=== PATIENT | female | born 1965 | race Caucasian/White ===

== ENCOUNTER 2023-01-22 09:28 | Observation (INO) ==
--- NOTE | 2022-12-25 10:00 | PAT Medication Instructions ---
Medication Instructions Date of Service December 25, 2022 Home Medications diclofenac sodium 75 mg tablet,delayed release 75 mg PO BID multivitamin 1 cap PO QAM venlafaxine 150 mg tablet,extended release 24 hr 150 mg PO QAM ASK your surgeon for instructions diclofenac sodium 75 mg tablet,delayed release 75 mg PO BID DO NOT take the morning of surgery multivitamin 1 cap PO QAM Take morning of surgery With a small sip of water, OTHERWISE NOTHING TO EAT OR DRINK AFTER MIDNIGHT: venlafaxine 150 mg tablet,extended release 24 hr 150 mg PO QAM Other Notes If you have any questions please call us at [phone] or [phone] or [phone] or [phone]
--- NOTE | 2022-12-31 10:03 | Anesthesiology Consultation ---
Date of Service December 31, 2022 Assessment & Plan (1) Encounter for pre-operative examination: - COVID screening: Per assessment on 12/31: No known COVID-19 positive contacts or current COVID-19 related symptoms. Travel screen negative. At surgeon discretion if preop Covid testing being done. - Outpatient joint assessment: Pt currently scheduled for inpatient pathway. If surgeon requests review for outpatient joint pathway, patient is an acceptable candidate for outpatient joint program from anesthesia standpoint. - PCP office visit (12/18/22): "Dina was told to check with me regarding the CT of the shoulder that showed some fibrotic changes in her chest. She is a nonsmoker, has no respiratory issues.. These fibrotic lung changes are not clinically relevant and she is cleared for surgery." - Abnormal CXR: CXR performed 12/31/22 showed "Mild interstitial thickening within the mid to lower lung zones. This is new from the prior study and could be due to mild congestive change, a low-grade interstitial pneumonitis, or developing chronic interstitial lung disease. Pulmonary consultation recommended for further evaluation." LUE CT performed 12/11/22 showed airspace opacities and possible fibrotic changes within the left lung. Correlate with history of recent infection. Recommend further evaluation with dedicated diagnostic chest CT if this is not a known finding." 11/2022 CT scan reviewed by PCP and felt nothing further needed preoperatively from his perspective. CT scan, PCP note and preop CXR findings reviewed with Dr. Chacon- he does not feel further evaluation and/or testing needed prior to surgery from his perspective. Chart Review Chart Review: Acceptable Risk for Surgery (pending evaluation AM DOS) and Patient seen in Pre Admission Testing Teaching & Discussion Pre-Anesthesia Teaching/Discussion Notes: Instructed NPO after midnight before surgery,except medications with 15 cc of water. Medication instructions provided according to the PAT guidelines. History Surgery Operation Date: 01/22/23 14:20 Proposed Procedures p Left Reverse Total Shoulder Arthroplasty - Erasto Cevallos M.D. Height/Weight Height: 5 ft 4.5 in Weight: 91 kg Allergies Allergy/AdvReac Type Severity Reaction Status Date / Time No Known Allergies Allergy Verified 12/24/22 14:02 Medications Home Medications Medication Instructions Recorded Confirmed Last Taken diclofenac sodium 75 mg 75 mg PO BID 12/24/22 12/24/22 Unknown tablet,delayed release multivitamin 1 cap PO QAM 12/24/22 12/24/22 Unknown venlafaxine 150 mg tablet,extended 150 mg PO QAM 12/24/22 12/24/22 Unknown release 24 hr Past Medical History Medical History Anxiety Obesity Osteoarthritis Exercise / Class Metabolic Activity II 4-5 Yardwork/Stairs/Walk up hill (one FS (no CP, no SOB)) Past Family History Family History Mother Family history of diabetes mellitus Family history of leukemia Brother Family history of diabetes mellitus Father Family history of diabetes mellitus Family/Other Family history of diabetes mellitus Daughter Family history of diabetes mellitus Past Surgical History Surgical History History of colonoscopy History of foot surgery RIGHT X2 History of neck surgery WITH CAGE/FULL ROM PER PATIENT History of shoulder surgery LEFT X2 History of total left hip replacement Past Anesthesia History No Hx of Anesthesia Complications and No Family Hx of Anesthesia Complications History of PONV No Hx of PONV and Hx of Motion Sickness (occasional) Social History Smoking Status: Never smoker Do You Dip or Chew Tobacco: No Hx Alcohol Use: No Hx Substance Use: No substance use type: does not use Review of Systems Patient denies chest pain, shortness of breath, dyspnea on exertion, fever, chills, cough, wheezing, palpitations. Physical Exam Vital Signs VITALS BP 113/79 P 87 TEMP 98.3 SP02 96%RA RESP 16 PHYSICAL Full cervical extension range of motion. Full TMJ range of motion. TMD 3 finger breaths Mallampati Score 3 Dentition: intact, left left side implant Lungs: clear throughout to auscultation Cardiac: regular rate and rhythm, no murmurs noted Spine: normal Carotid arteries: negative bruit Extremities: no edema Lab Results Anesthesia Preop Results Results Anesthesia Widget: WBC 5.34 K/ul (4.8-10.8) 12/31/22 Hgb 13.8 g/dl (12.0-16.0) 12/31/22 Hct 41.4 % (37.0-47.0) 12/31/22 Plt 341 K/uL (130-400) 12/31/22 Na 138 mmol/L (136-145) 12/31/22 K 4.3 mmol/L (3.5-5.1) 12/31/22 Cl 104 mmol/L (98-107) 12/31/22 CO2 25 mmol/L (21-32) 12/31/22 BUN 22 mg/dl (6-23) 12/31/22 Creat 0.78 mg/dl (0.6-1.2) 12/31/22 Glucose Level 117 mg/dl (70-99(Fasting)) H 12/31/22 PT 11.0 Seconds (9.0-12.0) 12/31/22 PTT 28.5 Seconds (21.0-31.0) 12/31/22 INR 1.0 (0.9-1.1) 12/31/22 HA1c 5.7 % (4.5-5.6) H 12/31/22 Urine Color Yellow 12/31/22 Urine Appearance Clear (Clear) 12/31/22 Urine pH 5.0 (4.5-7.5) 12/31/22 Urine Specific Rifle 1.016 (1.000-1.030) 12/31/22 Urine Protein Negative (Negative) 12/31/22 Urine Glucose (UA) Negative (Negative) 12/31/22 Urine Ketones Negative (Negative) 12/31/22 Urine Blood Negative (Negative) 12/31/22 Urine Nitrite Negative (Negative) 12/31/22 Urine Bilirubin Negative (Negative) 12/31/22 Urine Urobilinogen Negative (Negative) 12/31/22 Urine Leukocyte Esterase Trace (Negative) H 12/31/22 Urine WBC (Auto) 1-5 /hpf (0-5) 12/31/22 Urine RBC (Auto) 0-4 /hpf (0-4) 12/31/22 Urine Hyaline Casts (Auto) 0 /lpf (0-5) 12/31/22 Urine Epithelial Cells (Auto) 10-20 /lpf (0-5) H 12/31/22 Urine Bacteria (Auto) Negative (Negative) 12/31/22 Blood Type B Positive 12/31/22 Antibody Screen NEGATIVE 12/31/22 Testing Electrocardiogram Date: 12/31/22 Findings: + NSR @ (79) Chest X-Ray Date: 12/31/22 IMPRESSION: Mild interstitial thickening within the mid to lower lung zones. This is new from the prior study and could be due to mild congestive change, a low-grade interstitial pneumonitis, or developing chronic interstitial lung disease. Pulmonary consultation recommended for further evaluation. Other Testing LUE CT (11/20/22) Moderate osteoarthritis of the postoperative left glenohumeral joint. Query prior acromioclavicular joint debridement/decompression. The rotator cuff tendons are better evaluated on the outside MRI. There is a moderate to high grade fatty infiltration and atrophy of the infraspinatus muscle suggestive of chronic tear. Airspace opacities and possible fibrotic changes within the left lung. Correlate with history of recent infection. Recommend further evaluation with dedicated diagnostic chest CT if this is not a known finding. COVID-19 Risk Screen Screening Information COVID-19 Screen Date: 12/31/22 Exposure 21 Days Family/Household +COVID Last 21 Days: No Exposure 10 Days Any COVID Exposure Last 10 Days: No Symptoms Last 10 Days Experienced COVID Sx Last 10 Days: No + COVID 0-90 Days COVID + in Last 0-90 Days: No
--- NOTE | 2023-01-21 16:47 | History & Physical Report ---
Date of Service January 21, 2023 Assessment & Plan (1) Nontraumatic complete tear of left rotator cuff: Plan: She has a recurrent, full-thickness, retracted rotator cuff tear involving the entirety of the infraspinatus tendon and a significant portion of the supraspinatus tendon with near complete fatty atrophy of the infraspinatus muscle belly. This is therefore an irrepairable rotator cuff tear. She already has some glenohumeral joint arthritis, proximal migration humeral head, and 2 previous rotator cuff repairs on the shoulder. I advised her that another attempt at rotator cuff repair is not a viable treatment option. We discussed conservative management with steroid injections to help with the pain versus definitive surgical intervention with reverse total shoulder arthroplasty to help both her pain and function. Advised her that steroid injection is perfectly reasonable option, but will likely not help with her significant weakness; this is very bothersome to her. She would therefore like to proceed with reverse total shoulder arthroplasty, and I think this is reasonable. Risks, benefits, and alternatives of surgery were explained in detail. The surgical procedure, as well as postoperative recovery and rehabilitation, was also explained in detail. Risks include bleeding; infection; damage to surrounding structures such as nerves, blood vessels, and tendons that run in the area; persistent pain or stiffness; hardware failure; dislocation; brachial plexus palsy; blood clots; or need for further surgery. The patient understands all of this and wishes to proceed with surgery. Risks will be reviewed on the day of surgery and informed consent obtained. History of Present Illness Chief Complaint: Left shoulder pain and weakness Primary Care Provider: Pablito Small MD Previous procedures: 02/26/21 - Left shoulder arthroscopy with revision rotator cuff repair (repair of a new, large infraspinatus rotator cuff tear; previous supraspinatus repair was intact) 11/27/20 - Left shoulder arthroscopy with rotator cuff repair, biceps tenodesis, subacromial decompression, distal clavicle excision Ms. Nettles returns for her left shoulder. Again, she is almost 2 years out from her revision rotator cuff repair. She was doing very well with that shoulder until about July 2022. Around that time she had right ankle Achilles tendon repair and had to use a wheelchair after that surgery. She denies any 1 specific incident, but had progressive worsening of pain and weakness in that l eft shoulder with using the wheelchair. She also had 2 falls at home around [place] which likely contributed. Currently, she has severe pain in the right shoulder that is waking her up at night. She has severe weakness as well, and is really unable to lift anything, and this examination of the left shoulder reveals only about 100 degrees of active abduction is significantly affecting activities of daily living. Allergies Allergy/AdvReac Type Severity Reaction Status Date / Time No Known Allergies Allergy Verified 12/24/22 14:02 Home Medications Medication Instructions Recorded Confirmed Type diclofenac sodium 75 mg 75 mg PO BID 12/24/22 12/24/22 History tablet,delayed release multivitamin 1 cap PO QAM 12/24/22 12/24/22 History venlafaxine 150 mg tablet,extended 150 mg PO QAM 12/24/22 12/24/22 History release 24 hr Past Med/Surg History Medical History Anxiety Obesity Osteoarthritis Surgical History History of colonoscopy History of foot surgery RIGHT X2 History of neck surgery WITH CAGE/FULL ROM PER PATIENT History of shoulder surgery LEFT X2 History of total left hip replacement Family History Mother Family history of diabetes mellitus Family history of leukemia Brother Family history of diabetes mellitus Father Family history of diabetes mellitus Family/Other Family history of diabetes mellitus Daughter Family history of diabetes mellitus Social History Smoking Status: Never smoker Hx Alcohol Use: No Hx Substance Use: No Preferred Language: Tuvaluan Communication Ability: Effective Nib Finisher Required: No Beliefs That Will Affect Care: Faith Faith Beliefs: RASTAFARI Current Living Situation: Spouse Feels Safe at Home: Yes Assistive Devices: Glasses Physical Exam Physical Exam: And active external rotation to neutral. She has significant weakness in supraspinatus stress testing, and profound weakness on infraspinatus. She has pain with range of motion. Results & Data Diagnostic Findings Previous x-rays of the left shoulder from November 27 were reviewed. Mild glenohumeral joint arthritis. No obvious proximal migration of the humeral head. New MRI of the left shoulder obtained today was independently reviewed by me. Several sequences are significantly limited by motion artifact. Numerous anchors are seen throughout the humeral head. It looks like the supraspinatus tendon repair is intact, but slightly thinned. It looks like there is significant recurrent tearing of the infraspinatus tendon with tendon retraction and nearly complete fatty atrophy of the infraspinatus muscle belly. There is proximal migration of the humeral head.
[~2023-01-22 09:28] MED LIST: ACETAMINOPHEN 500 MG TAB PO SCH; BUPIVACAINE 0.5 % 5 MG/1 ML PF 10ML VIAL ONE; CeleBREX 200 MG CAP PO SCH; FAMOTIDINE 20 MG TAB PO SCH; GABAPENTIN 600 MG DOSE PO SCH; LIDOCAINE 2% MPF LOCAL 5 ML VIAL ONE; LR 15ML/HR IV SCH; MIDAZOLAM HCL 1 MG/ML 2ML VIAL ONE; PROPOFOL IV EMULSION 10 MG/ML 20 ML VIAL IV ONE; ROCURONIUM BROMIDE 10 MG/ML 5 ML VIAL IV ONE; TRANEXAMIC ACID 1,000 MG **IV Pre-op IV SCH; ceFAZolin 2000MG 2,000 MG/15 ML SYR IV SCH; dexAMETHasone 4 MG TAB PO SCH; fentaNYL citrate PF 100 MCG/2 ML VIAL ONE
--- NOTE | 2023-01-22 09:58 | History & Physical Bridge Note ---
Date of Service January 22, 2023 History & Physical Bridge Note I have examined the patient, reviewed the History & Physical and in the interval since the performance of the History & Physical I have noted the following changes of clinical significance: no changes noted
[2023-01-22] MEDS ORDERED: PHENYLEPHRINE HCL 10 MG/ML VIAL ONE (11:29)
[2023-01-22] MEDS ORDERED: ONDANSETRON INJ 2 MG/ML 2 ML VIAL ONE (11:33)
[2023-01-22] MEDS ORDERED: ROCURONIUM BROMIDE 10 MG/ML 5 ML VIAL IV ONE (11:43)
[2023-01-22] MEDS ORDERED: ePHEDrine sulfate 50 MG/ML AMP ONE (11:53)
[2023-01-22] MEDS ORDERED: VASOPRESSIN 20 UNIT/ML VIAL ONE (12:20)
--- NOTE | 2023-01-22 12:31 | Operative Report ---
Post Operative Report Pre & Post Diagnosis Operation Date: 01/22/23 11:55 Pre-Op Diagnosis: Left shoulder irrepairable recurrent rotator cuff tear Post-Op Diagnosis: Left shoulder irrepairable recurrent rotator cuff tear I identified the patient and participated in the time-out.: Yes Procedure Operation Date: 01/22/23 11:55 Actual Procedures Left reverse total shoulder arthroplasty (73534) Open biceps tenodesis () Deep hardware removal () - Erasto Cevallos M.D. Surgeon Erasto Cevallos MD Inspector Assembly Gurvinder Talbot PA-C Estimated Blood Loss 75 Findings Consistent with Post-Op Diagnosis Specimens None Drains None Anesthesia Type General Regional Complications Intraoperative humeral calcar fracture requiring cerclage cable Disposition Disposition: Recovery Room Indications Ms. Nettles is a 57-year-old female who previously underwent a left shoulder rotator cuff repair in November 2020, followed by a revision rotator cuff repair in February 2021. She was doing well until around July 2022 when she developed progressively worsening pain and weakness in her shoulder without obvious new specific injury. History, clinical exam, and imaging were consistent with the above diagnosis. Risks, benefits, and alternatives of surgery were explained in detail. The patient understood all this and wished to proceed. Description of Procedure Components Implanted: Tornier Reverse Total Shoulder implants Perform glenoid baseplate: 25mm, 15 degree full wedge with 6.5mm central screw and 5.0mm peripheral screws Glenosphere: 36mm standard Ascend Flex humeral stem: 3B Standard length (74mm) Humeral tray: 1.5 mm offset, +0mm thickness Polyethylene insert: 36mm, +6mm thickness [place] 2mm beaded cerclage cable Patient was identified in the preoperative holding area. Operative extremity was marked. Regional blockade was given by the Anesthesia Staff. Patient was then brought back to the operating room, and general anesthesia was induced without complication. Appropriate weight-based dose of Ancef was infused intravenously for antibiotic prophylaxis. The patient was then placed in the beachchair position. Left arm was then prepped and draped in a standard sterile fashion using Chlorhexidine prep. A standard deltopectoral incision was made through the skin and subcutaneous tissue. The cephalic vein was identified and retracted medially. Small branches to the deltoid were coagulated as necessary. The clavipectoral fascia was then incised and the subdeltoid space was opened. The rotator cuff was found to be deficient, and I therefore decided to perform a reverse total shoulder arthroplasty as planned preoperatively. The biceps tendon was identified within the bicipital groove, and previous biceps tenodesis at the superior aspect of the bicipital groove was noted to be intact. However, since removal of the tenodesis screw would be required for placement of the humeral implant, I had to revise the tenodesis to a soft tissue tenodesis at a more inferior location. I therefore tenodesed the biceps tendon at the superior border of the pectoralis tendon with #2 FiberWire suture. The biceps tendon was then divided proximal to this new tenodesis site and resected up to the previous tenodesis screw. The remaining subscapularis tendon was elevated subpe riosteally off of the lesser tuberosity. The glenohumeral joint was then dislocated, and large osteophytes were debrided with a ronguer. The intramedullary canal of the humerus was then opened with a canal finder. The humeral head cut was then made in the appropriate inclination and version using the cutting guide. Numerous rotator cuff repair anchors were encountered within the humeral canal, and the previously placed anchors and nonabsorbable sutures were removed as they were encountered. The humeral canal was then sequentially broached. Even though the preoperative plan size the humeral canal at a size 5 stem, the canal felt fairly tight at a size 3 trial stem. Unfortunately, during final impaction of the size 3 trial stem, a small fracture developed at the medial humeral calcar. I therefore placed a cerclage cable around the proximal humeral metaphysis to reduce and prevent further propagation of this fracture. This was tensioned appropriately and cut. A protective cap was then placed on top of the humeral trial. I then turned my attention to the glenoid. The proximal stump of the biceps tendon was excised, along with the labrum circumferentially around the glenoid. The Blueprint drill guide was then positioned on the glenoid, and the guidepin was then inserted. The 15 degree angled reamer was then inserted over the guidepin and an reamed to an appropriate depth. The central screw hole was drilled, and appropriate length 6.5mm central screw was selected. The baseplate was then implanted into place according to our preoperative Blueprint plan by tightening down the central screw. A peripheral 5mm nonlocking screw was placed superiorly first for additional compression of the baseplate, and then additional locking 5 mm peripheral screws were placed to complete fixation of the baseplate. Glenosphere was then impacted and secured. A trial humeral tray and insert were placed on the trial humeral stem, and a trial reduction was carried out. Once I achieved acceptable joint stability and range of motion with the trial implants, the final humeral implants were assembled on the back table and then impacted into position. I then took the shoulder through full range of motion to ensure good stability and acceptable motion. Wound was then copiously irrigated with sterile saline. Deep fascia was closed with 0 V-lock suture. Subcutaneous tissue was closed with 2-0 V-lock, and skin was closed with 3-0 V-lock. Skin was then sealed with Dermabond. Sterile dressings were then applied with a waterproof silver-impregnated dressing, and the arm was placed into a sling. The patient was awakened from anesthesia and taken to the Post Anesthesia Care Unit in stable condition. There were no immediate complications from the procedure although then the intraoperative calcar fracture noted above. I was present and scrubbed for the entire procedure, with the exception of final skin closure and dressing application. Due to the complex nature of the procedure, the entire surgery was performed with the operational assistance of Gurvinder Talbot PA-C. The trade sales assistant, under direct supervision, was involved in the performance of all aspects of the surgical procedure including hemostasis, tissue incision and retraction, instrument management, patient positioning, and wound closure. I attest to the content of the Intraoperative Record and any orders documented therein. Any exceptions are noted below.
[2023-01-22] MEDS ORDERED: SUGAMMADEX SODIUM 200 MG/2 ML VIAL IV ONE (12:33)
[2023-01-22] MEDS ORDERED: fentaNYL citrate PF 100 MCG/2 ML VIAL IV PRN (12:37)
[2023-01-22] MEDS ORDERED: NALOXONE HCL 0.4 MG/1 ML VIAL/CARP IV PRN ×2 (12:37→13:41)
[2023-01-22] MEDS ORDERED: ePHEDrine sulfate 50 MG/ML AMP IV PRN (12:37)
[2023-01-22] MEDS ORDERED: FLUMAZENIL 0.1 MG/1 ML 10 ML VIAL IV PRN (12:37)
[2023-01-22] MEDS ORDERED: LABETALOL HCL IV 5 MG/ML 20ML IV PRN (12:37)
[2023-01-22] MEDS ORDERED: PROMETHAZINE HCL 12.5 MG in SODIUM CHLORIDE 0.9% 50 ML IV PRN (12:37)
[2023-01-22] MEDS ORDERED: HYDROmorphone INJ 1 MG/ML SYRINGE IV PRN (12:37)
[2023-01-22] MEDS ORDERED: ATROPINE SULFATE 0.1 MG/ML 10ML SYR IV PRN (12:37)
[2023-01-22] MEDS ORDERED: ONDANSETRON INJ 2 MG/ML 2 ML VIAL IV PRN ×2 (12:37→13:41)
--- NOTE | 2023-01-22 13:19 | Anesthesiology Progress Note ---
Date of Service January 22, 2023 Anesthesia Post Procedure Vital Signs Vital Signs: Temp Pulse Pulse Resp BP Pulse Ox O2 Del Method 01/22/23 13:10 87 14 94/72 L 99 Room Air 01/22/23 13:00 84 16 115/75 100 Oxymask 01/22/23 12:50 36.0 C L 95 H 16 119/77 95 Oxymask 01/22/23 10:02 36.4 C L 84 20 136/92 96 Room Air O2 Flow Rate 01/22/23 13:10 01/22/23 13:00 5 01/22/23 12:50 5 01/22/23 10:02 Pain Intensity Left Shoulder: Pain Intensity: 4 Transfer of Care Handoff Completed per policy Notes Mental Status: alert / awake / arousable Patient Amnestic to Procedure: Yes Nausea / Vomiting: adequately controlled Pain: adequately controlled Airway Patency, RR, SpO2: stable & adequate BP & HR: stable & adequate Hydration State: stable & adequate Anesthetic Complications: no major complications apparent
[2023-01-22] MEDS ORDERED: oxyCODONE HCL IR 5 MG TAB (IMMEDIATE RELEASE) PO PRN (13:41)
[2023-01-22] MEDS ORDERED: MAGNESIUM HYDROXIDE SUSP 30 ML UDC PO PRN (13:41)
[2023-01-22] MEDS ORDERED: bisacodyL 10 MG SUPP PR PRN (13:41)
[2023-01-22] MEDS ORDERED: METOCLOPRAMIDE HCL INJ 5 MG/ML 2 ML VIAL IV PRN (13:41)
--- NOTE | 2023-01-22 13:52 | XRay Report ---
XR shoulder LT min 2V routine CLINICAL HISTORY: Post shoulder surgery COMPARISON: None FINDINGS: Alignment of the reverse total left shoulder arthroplasty is anatomic. No definite peripro sthetic fracture is identified however, a cerclage wire of the proximal left humerus is in place. The re are no unexpected radiopaque foreign bodies. Distal left clavicular resection is noted. IMPRESSION: Postoperative findings consistent with a reverse total left shoulder arthroplasty with pl acement of a proximal left humeral cerclage wire. ACT 112: Negative or not required by law. Electronically signed by: Bernabe Myers M.D. 01/22/2023 1:51 PM
[2023-01-22] MEDS: SODIUM CHLORIDE 0.9% 1000ML 1,000 ML IV SCH ×2 (14:03→23:43)
[2023-01-22] MEDS: ceFAZolin 2000MG 2,000 MG/15 ML SYR IV SCH (18:04)
[2023-01-22] MEDS: ACETAMINOPHEN 500 MG TAB PO SCH ×2 (18:04→23:42)
[2023-01-22] MEDS: DOCUSATE SODIUM 100 MG CAP PO SCH (20:47)
[2023-01-22] MEDS: IBUPROFEN 600 MG TAB PO SCH (20:47)
[2023-01-23] MEDS: IBUPROFEN 600 MG TAB PO SCH ×2 (03:38→08:57)
[2023-01-23] MEDS: ceFAZolin 2000MG 2,000 MG/15 ML SYR IV SCH (03:38)
[2023-01-23] MEDS: ACETAMINOPHEN 500 MG TAB PO SCH ×2 (05:11→11:47)
[2023-01-23 06:47] LABS: Basophils # (auto) 0.02 K/uL (0-0.2); Basophils % (auto) 0.3 %; Eosinophils # (auto) 0.01 K/uL (0-0.50); Eosinophils % (auto) 0.1 %; Hematocrit (blood only) 32.7 % (37.0-47.0); Hemoglobin 11.2 g/dl (12.0-16.0); Immature Granulocytes # (auto) 0.03 K/uL (0.01-0.20); Immature Granulocytes % (auto) 0.4 %; Lymphocytes # (auto) 1.96 K/uL (1.2-3.4); Lymphocytes % (auto) 24.5 %; Mean Corpuscular Hemoglobin 29.6 pg (25.0-34.0); Mean Corpuscular Hgb Conc 34.3 g/dL (32.0-36.0); Mean Corpuscular Volume 86.5 fL (80.0-100.0); Mean Platelet Volume 10.3 fL (9.4-12.4); Monocytes # (auto) 0.73 K/uL (0.11-0.59); Monocytes % (auto) 9.1 %; Neutrophils # (auto) 5.25 K/uL (1.40-6.50); Neutrophils % (auto) 65.6 %; Platelet Count 277 K/uL (130-400); RDW Standard Deviation 41.2 fL (36.4-46.3); Red Blood Count 3.78 M/uL (4.20-5.40)
[2023-01-23 07:34] LABS: Calcium 8.4 mg/dl (8.6-10.3); Potassium 4.1 mmol/L (3.5-5.1)
[2023-01-23 07:40] LABS: BUN Creatinine Ratio 34.4 (10-20); Est GFR (African American) 117.5 ml/min; Est GFR (Non-African American) 101.3 ml/min
[2023-01-23] MEDS: DOCUSATE SODIUM 100 MG CAP PO SCH (08:57)
[2023-01-23] MEDS ORDERED: ASPIRIN 325 MG ECTAB PO SCH (09:00)
[2023-01-23] MEDS ORDERED: MULTIVITAMIN TAB PO SCH (09:00)
[2023-01-23] MEDS ORDERED: VENLAFAXINE HCL XR 150 MG CAPXR PO SCH (09:00)
--- NOTE | 2023-01-23 10:54 | Orthopedic Progress Note ---
Date of Service January 23, 2023 Assessment & Plan (1) Nontraumatic complete tear of left rotator cuff: Plan: Postoperative day #1 status post left reverse total shoulder arthroplasty doing well. -Plan for discharge home today. Admission and Anticipated Discharge Date Admission Date: January 22, 2023 Subjective Patient resting comfortably in her chair. She says she has some soreness in the shoulder overnight, but overall pain is well controlled. Physical Exam Physical Exam: Examination of the left shoulder reveals her dressing is clean, dry, intact. Motor function is intact in the median, ulnar, and radial nerve distributions. She still endorses some numbness on the radial aspect of her hand. Results & Data Vital Signs (Past 12 Hours) Vital Signs Temp Pulse Resp BP Pulse Ox O2 Del Method 01/23/23 07:00 36.9 C 66 18 102/68 97 Room Air 01/23/23 03:00 36.5 C 78 16 104/71 97 Room Air 01/22/23 23:00 36.6 C 77 17 102/69 93 Room Air
--- NOTE | 2023-01-23 10:55 | Discharge Summary ---
Date of Service January 23, 2023 Admission HPI Per Admitting Provider Previous procedures: 02/26/21 - Left shoulder arthroscopy with revision rotator cuff repair (repair of a new, large infraspinatus rotator cuff tear; previous supraspinatus repair was intact) 11/27/20 - Left shoulder arthroscopy with rotator cuff repair, biceps tenodesis, subacromial decompression, distal clavicle excision Ms. Nettles returns for her left shoulder. Again, she is almost 2 years out from her revision rotator cuff repair. She was doing very well with that shoulder until about July 2022. Around that time she had right ankle Achilles tendon repair and had to use a wheelchair after that surgery. She denies any 1 specific incident, but had progressive worsening of pain and weakness in that left shoulder with using the wheelchair. She also had 2 falls at home around [place] which likely contributed. Currently, she has severe pain in the right shoulder that is waking her up at night. She has severe weakness as well, and is really unable to lift anything, and this examination of the left shoulder reveals only about 100 degrees of active abduction is significantly affecting activities of daily living. Principal Diagnosis Left shoulder irrepairable recurrent massive rotator cuff tear Discharge Data Allergies Allergy/AdvReac Type Severity Reaction Status Date / Time No Known Allergies Allergy Verified 01/22/23 09:59 Procedures Performed Operation Date: 01/22/23 11:55 Actual Procedures p Left Reverse Total Shoulder Arthroplasty, Open Biceps tenodesis, (Left) - Erasto Cevallos M.D. s Deep Hardware Removal (Left) - Erasto Cevallos M.D. Ordered Studies 01/22/23 05:00 US - OR guided needle placemen Routine Hospital Course (1) Nontraumatic complete tear of left rotator cuff: Patient underwent a left reverse total shoulder arthroplasty, and was admitted under the orthopedic surgery service postoperatively. Patient tolerated the procedure well and was transferred up to the orthopedic surgery floor in stable condition. Perioperative antibiotic coverage was initiated for 24 hours. DVT prophylaxis consisting of aspirin 325 mg daily was started the morning after surgery. On postoperative day 1, pain was well controlled with oral medications only. Patient was ambulating without assistance, tolerating a regular diet, and was therefore determined to be safe and ready for discharge to home. Total Time Total Time Spent Total Time Spent (In Minutes): 15 Discharge Plan Discharge Items Patient Disposition: Home - Self-Care Reason For Visit: Left shoulder Irreparable recurrent Rotator Cuff T Discharge Diagnosis: Left shoulder irrepairable recurrent rotator cuff tear Activity: Per Instructions section Non-emergency contact: Surgeon Call non-emergency contact if: your pain is not controlled, your temperature is above 101.5, your wound has increased redness and your wound has increased drainage Follow-up/Referrals: Pablito Small MD [Primary Care Provider] - Erasto Cevallos M.D. [Physician] - Diet: Regular Addtl Attending Provider Instructions: Things to Watch Out For -Go to the Emergency Room if you have sudden onset of nausea, vomiting, chest pain, shortness of breath, or uncontrollable pain. -Call the clinic or go to the Emergency Room if you have a sudden increase in the amount of wound drainage or the drainage becomes thick, yellow or green, or foul-smelling. -For routine questions, call the clinic at [phone] during regular business hours (8am-5pm). For urgent issues after regular business hours, you may call the clinic to be connected to the on-call physician. Dressings -A special waterproof, silver-impregnated dressing was placed on your shoulder. Keep this dressing in place for 1 week after surgery. You may shower with the waterproof dressing in place, but do not soak the dressing in the bathtub or pool. -One week after surgery, you may remove the waterproof dressing. You may continue to shower, and let water run BRIEFLY over the incision, but do not soak the incision in the bathtub or pool for 2 weeks. You may also gently clean the incision with mild soap and water; pat the incision dry after cleaning-do not rub the incision. Apply a new dressing daily thereafter. Shoulder Exercises -Keep your operative shoulder in the sling for comfort, except as detailed below. -You should come out of the sling 4-5 times a day for passive pendulum exercises: lean over and swing your arm in a circular pattern. -You should also do active-assisted forward flexion exercises: use your opposite hand to lift your operative arm forward to 90 degrees. -Do not flex your elbow (curl motion) or supinate your forearm (rotating palm up) against resistance. -Do not use your arm to push yourself up out of bed or up from a seated position. Ice Pack -You may use an ice pack for pain relief. You should use it 20-30 minutes at a time. Place a towel between the ice pack and your skin to prevent frostbite. -You should use the ice pack fairly regularly for the first 1-2 weeks after surgery to help reduce pain and inflammation. -About 2 weeks after your surgery, you should start using heat to loosen up your shoulder prior to doing your stretching exercises, then use the cooling sleeve after your exercises are complete to reduce swelling and pain. Pain Medicines -Your prescriptions for pain medications have already been sent to the pharmacy on file at [facility]. -You have been prescribed an anti-inflammatory (Motrin/ibuprofen) and a non- narcotic pain medicine (Tylenol/acetaminophen). These are your primary pain medications. Take them each every 6 hours as instructed. It is recommended that you stagger these medicines every 3 hours (i.e. take ibuprofen at 8:00 am, then acetaminophen at 11:00 am, then ibuprofen at 2:00 pm, etc) -DO NOT take any additional anti-inflammatories (Advil, Aleve/naproxen, Mobic/meloxicam, Celebrex) or any additional Tylenol/acetaminophen products with these prescribed medications. -You have also been prescribed an additional narcotic pain medication (oxycodone). Take this medicine ONLY for breakthrough pain not controlled by the ibuprofen and acetaminophen. -Do not drive or operate heavy machinery while taking the narcotic medication. -Common side effects of narcotic pain medicines include itching, nausea, constipation, and feeling "loopy". However, if you develop a rash or hives, stop taking the medicine and call the clinic. If you develop swelling in your throat or difficulty breathing, go to the Emergency Room or call 911 IMMEDIATELY. -You may take over the counter stool softeners if needed for constipation. Aspirin -Take a full strength (325mg) aspirin every day for 4 weeks (28 days) to prevent blood clots. -If you were taking a baby aspirin (81mg) prior to surgery, you may resume taking this 81mg dose after you complete the 28-day course of the 325mg strength dose; do not take the 325mg dose in addition to your 81mg dose. -Be aware that you will bruise easier while taking Aspirin; this is normal. However, if you develop a significantly large area of swelling after an injury, or have a cut that will not stop bleeding, call the clinic or go to the Emergency Room immediately. Pending Studies at Discharge: No Stand-Alone Forms: My [facility] Medications and DC Order Prescriptions: Continued multivitamin Capsule 1 cap PO QAM venlafaxine 150 mg Tablet Extended Release 24hr 150 mg PO QAM Discontinued diclofenac sodium 75 mg Tablet,Delayed Release (Dr/Ec) 75 mg PO BID Discharge Orders: Discharge Order (Routine); Ordered 01/23/23 Ordered By: Erasto Cevallos Admission Data Admit Date/Time: 01/22/23 12:53 Attending Provider: Erasto Cevallos Admit Provider: Erasto Cevallos Primary Care Provider: Pablito Small
== END 2023-01-23 13:12 | disposition home or self-care (01) ==
LOC: ASU 09:28 → 3E 09:28